=== PATIENT | male | born 1990 | race African-American/Black ===

== ENCOUNTER 2019-02-07 18:25 | Emergency (ER) | payer MEDICAID, OTHER ==
[~2019-02-07] VITALS: Ht 172.7 cm; Wt 66.0 kg
[2019-02-07] MEDS ORDERED: SODIUM CHLORIDE 0.9% 1,000 ML IV ONE (18:59)
[2019-02-07] MEDS ORDERED: ONDANSETRON HCL 4MG/2ML INJ IV STA (18:59)
[2019-02-07] MEDS ORDERED: ASPIRIN 81MG TABLET PO ONE (19:00)
[2019-02-07 19:35] LABS: BASOPHILS % 1.5 % (0.0-2.0); EOSINOPHILS % 3.5 % (0.0-5.0); HEMATOCRIT. 44.3 % (42.0-52.0); LYMPHOCYTES % 31.1 % (20.0-50.0); MEAN CORPUSCULAR HEMOGLOBIN 26.8 pg (28.0-32.0); MEAN PLATELET VOLUME 8.5 fl (7.4-10.4); MONOCYTES % 12.6 % (2.0-8.0); NEUTROPHILS % 51.3 % (40.0-76.0); PLATELET 272 x1000/uL (130-400); RED BLOOD CELL COUNT 5.62 mill/uL (4.7-6.1); RED CELL DISTRIBUTION WIDTH 14.4 % (11.6-14.6)
[2019-02-07 19:43] LABS: CHLORIDE 100 mEq/L (98-107)
[2019-02-07 19:45] LABS: INR 1.1; PROTHROMBIN TIME 10.8 sec (9.6-11.0)
[2019-02-07 19:47] LABS: ETHANOL BLOOD < 10 mg/dL
[2019-02-07 22:56] LABS: *AMPHETAMINES SCREEN URINE PRESUMTIVE POSITIVE (NEGATIVE); *BARBITURATES SCREEN URINE NEGATIVE (NEGATIVE)
[2019-02-07 22:57] LABS: *BENZODIAZEPINES SCREEN URINE NEGATIVE (NEGATIVE); *COCAINE SCREEN URINE PRESUMTIVE POSITIVE (NEGATIVE); CANNABINOID URINE SCREEN NEGATIVE (NEGATIVE); METHADONE URINE SCREEN NEGATIVE (NEGATIVE); OPIATES URINE SCREEN NEGATIVE (NEGATIVE); PHENCYCLIDINE URINE SCREEN NEGATIVE (NEGATIVE)
[2019-02-07 23:00] VITALS: BP 113/56
== END 2019-02-07 23:29 | disposition left against medical advice (07) ==
LOC: ER 18:25
DX: R45.851 Suicidal ideations (principal); F20.9 Schizophrenia, unspecified; F31.9 Bipolar disorder, unspecified; G40.909 Epilepsy, unspecified, not intractable, without status epilepticus; F14.10 Cocaine abuse, uncomplicated; F15.10 Other stimulant abuse, uncomplicated; Z59.0 Homelessness
CPT/HCPCS: 36415; 71045; 80053; 80305; 80307; 80320; 80329; 83690; 84484; 85025; 85610; 93005; 96374; 99284; J2405; J7030; G0480